=== PATIENT | female | born 1965 | race Caucasian/White ===

== ENCOUNTER 2017-10-22 17:09 | Emergency (ER) | payer MEDICARE, OTHER ==
[~2017-10-22] VITALS: Ht 172.7 cm; Wt 108.9 kg
[2017-10-22] MEDS ORDERED: DIPHTH,PERTUSS(ACELL),TET TOX 0.5 ML DISP.SYRIN. VAX IM ONE (17:45)
[2017-10-22] MEDS ORDERED: LIDOCAINE 1% Multi-Dose 20 ML VIAL. IJ ONE (17:45)
[2017-10-22] MEDS ORDERED: HYDR-971 PO (18:02)
[2017-10-22] MEDS ORDERED: CLIN300C8 PO (18:02)
--- NOTE | 2017-10-22 18:03 | PHYS DOC ---
Past History Past Medical History: Hypertension Past Surgical History: No Surgical History Alcohol Use: None Drug Use: None Adult General Chief Complaint Chief Complaint: SKIN RASH/ABSCESS HPI HPI Patient is a very pleasant 52-year-old female who presents for evaluation of an abscess to the right upper inner thigh. She states that she was working outside the other day and believes that an insect bit her. She is legally blind and did not see the insect and cannot describe it. She has no history of MRSA or abscesses in the past. She denies any other complaints and specifically denies fevers or chills. Review of Systems Review of Systems Constitutional: Denies fever or chills [] Eyes: Denies change in visual acuity, redness, or eye pain [] HENT: Denies nasal congestion or sore throat [] Respiratory: Denies cough or shortness of breath [] Cardiovascular: No additional information not addressed in HPI [] GI: Denies abdominal pain, nausea, vomiting, bloody stools or diarrhea [] : Denies dysuria or hematuria [] Musculoskeletal: Denies back pain or joint pain [] Integument: Denies rash or skin lesions [] right upper inner thigh abscess Neurologic: Denies headache, focal weakness or sensory changes [] Endocrine: Denies polyuria or polydipsia [] All other systems were reviewed and found to be within normal limits, except as documented in this note. Current Medications Current Medications Current Medications Medications (Trade) Dose Ordered Sig/Kalpesh Start Time Stop Time Status Last Admin Dose Admin Diphtheria/ Tetanus/Acell Pertussis (Boostrix) 0.5 ml ONCE ONCE 10/22/17 17:45 10/22/17 17:46 DC Lidocaine HCl 20 ml 1X ONCE 10/22/17 17:45 10/22/17 17:46 DC Allergies Allergies Allergies Coded Allergies Type Severity Reaction Last Updated Verified temazepam Allergy Severe tongue swelling 10/22/17 Yes Physical Exam Physical Exam Constitutional: Well developed, well nourished, no acute distress, non-toxic appearance. [] HENT: Normocephalic, atraumatic, bilateral external ears normal, oropharynx moist, no oral exudates, nose normal. [] Eyes: PERRLA, EOMI, conjunctiva normal, no discharge. [] Neck: Normal range of motion, no tenderness, supple, no stridor. [] Cardiovascular:Heart rate regular rhythm, no murmur [] Lungs & Thorax: Bilateral breath sounds clear to auscultation [] Abdomen: Bowel sounds normal, soft, no tenderness, no masses, no pulsatile masses. [] Skin: Warm, dry, no erythema, no rash. [] right upper inner thigh abscess with surrounding erythema Back: No tenderness, no CVA tenderness. [] Extremities: No tenderness, no cyanosis, no clubbing, ROM intact, no edema. [] Neurologic: Alert and oriented X 3, normal motor function, normal sensory function, no focal deficits noted. [] Psychologic: Affect normal, judgement normal, mood normal. [] Current Patient Data Vital Signs Vital Signs Date Time Temp Pulse Resp B/P (MAP) Pulse Ox O2 Delivery O2 Flow Rate FiO2 10/22/17 17:10 98.4 76 20 98 Room Air EKG EKG [] Radiology/Procedures Radiology/Procedures [] Course & Med Decision Making Course & Med Decision Making Pertinent Labs and Imaging studies reviewed. (See chart for details) [] Dragon Disclaimer Dragon Disclaimer This electronic medical record was generated, in whole or in part, using a voice recognition dictation system. Incision and Drainage Indication: Right upper inner thigh abscess Procedure: The patient was positioned appropriately and the skin over the incision site was prepped with iodine. Local anesthesia was given with 1% lido without epi. An incision was then made over the right thigh abscess and white/ yellow purulent material was expressed. Loculations were broken up. The drainage cavity was then irrigated with lidocaine and then iodoform gauze packing was placed. cultures obtained. The patients tetanus status updated today. The patient tolerated the procedure well. Complications: none Departure Departure: Impression: Primary Impression: Thigh abscess Disposition: 01 HOME, SELF-CARE Condition: STABLE Referrals: CRISTY JORGE (PCP) Patient Instructions: Abscess Additional Instructions: Follow-up with your doctor in the next 2-3 days and have the packing removed. Take the antibiotics and pain medicine as needed. Return to the ER for new or worsening symptoms. Scripts Hydrocodone Bit/Acetaminophen (NORCO 5-325 TABLET) 1 Each Tablet 1 TAB PO PRN Q6HRS PRN for PAIN, #15 TAB 0 Refills Prov: VASYL SOLIS DO 10/22/17 Clindamycin Hcl (CLINDAMYCIN HCL) 300 Mg Capsule 1 CAP PO TID, #30 CAP Prov: VASYL SOLIS DO 10/22/17 VASYL SOLIS DO Oct 22, 2017 18:03
[2017-10-22] MEDS ORDERED: HYDROcodone/APAP 5/325MG 1 TAB TABLET PO ONE (18:15)
[2017-10-22] MEDS ORDERED: CLINDAMYCIN HCL 150 MG CAPSULE PO ONE (18:15)
[2017-10-22 18:28] VITALS: BP 152/97
== END 2017-10-22 18:25 | disposition home or self-care (01) ==
LOC: ER 17:09
DX: L02.415 Cutaneous abscess of right lower limb (principal); I10 Essential (primary) hypertension; Z88.8 Allergy status to other drugs, medicaments and biological substances
CPT/HCPCS: 10060; 87070; 90471; 90715; 99283-25

== ENCOUNTER 2017-10-24 14:01 | Emergency (ER) | payer MEDICARE, OTHER ==
[~2017-10-24] VITALS: Ht 172.7 cm; Wt 108.9 kg
[~2017-10-24 14:01] MED LIST: CLIN300C8 PO; HYDR-971 PO
[2017-10-24 14:05] VITALS: BP 150/90
--- NOTE | 2017-10-24 14:29 | PHYS DOC ---
Past History Past Medical History: Hypertension, Other Past Surgical History: No Surgical History Alcohol Use: None Drug Use: None Adult General Chief Complaint Chief Complaint: WOUND CHECK HPI HPI 52-year-old female presenting the emergency department for reevaluation of her wound which was seen a few days ago. She had an abscess associated with cellulitis . She had her wound packed and initiated on oral clindamycin. She presents today for reevaluation and wound check.\ Review of systems is negative for fevers chills chest pain or shortness of breath. All other review of systems is negative unless otherwise noted in history of present illness. ED course: 52-year-old female presenting for wound reevaluation. The patient's cellulitis is faint and clearly improving from the previously demonstrated marker line. We removed the patient's packing. We recommend the patient continue taking her antibiotics. We natalio a With the date on the cellulitis for repeat wound examination in 2-3 days. The patient has been examined and was not found to have an emergency medical condition. The patient was then discharged home in stable condition to follow up with their primary care physician over the next 2-3 days. They were to return if their symptoms worsened or if they were concerned for any reason. Face -to-face discharge instructions and return precautions were given. Patient's questions were answered to their satisfaction. Patient is comfortable with plan. Review of Systems Review of Systems SEE ABOVE. Allergies Allergies Allergies Coded Allergies Type Severity Reaction Last Updated Verified temazepam Allergy Severe tongue swelling 10/22/17 Yes Physical Exam Physical Exam SEE ABOVE Constitutional: Well developed, well nourished, no acute distress, non-toxic appearance. [] HENT: Normocephalic, atraumatic, bilateral external ears normal, oropharynx moist, no oral exudates, nose normal. [] Eyes: PERRLA, EOMI, conjunctiva normal, no discharge. [] Neck: Normal range of motion, no tenderness, supple, no stridor. [] Cardiovascular:Heart rate regular rhythm, no murmur [] Lungs & Thorax: Bilateral breath sounds clear to auscultation [] Abdomen: Bowel sounds normal, soft, no tenderness, no masses, no pulsatile masses. [] Skin: cellulitis in right thigh as above. otherwise unremarkable Back: No tenderness, no CVA tenderness. [] Extremities: No tenderness, no cyanosis, no clubbing, ROM intact, no edema. [] Neurologic: Alert and oriented X 3, normal motor function, normal sensory function, no focal deficits noted. [] Psychologic: Affect normal, judgement normal, mood normal. [] Current Patient Data Vital Signs Vital Signs Date Time Temp Pulse Resp B/P (MAP) Pulse Ox O2 Delivery O2 Flow Rate FiO2 10/24/17 14:05 98.4 72 18 100 Room Air EKG EKG [] Radiology/Procedures Radiology/Procedures [] Course & Med Decision Making Course & Med Decision Making Pertinent Labs and Imaging studies reviewed. (See chart for details) [] Dragon Disclaimer Dragon Disclaimer This electronic medical record was generated, in whole or in part, using a voice recognition dictation system. Departure Departure: Impression: Primary Impression: Cellulitis Disposition: HOME, SELF-CARE Condition: STABLE Referrals: CRISTY JORGE (PCP) Patient Instructions: Abscess, Care After, Cellulitis Additional Instructions: Thank you for allowing us to participate in your care today. Followup with your primary care physician in 3 days for wound recheck. Call your Primary Doctor tomorrow and inform them of your visit today. If you do not have a primary care provider you can ask for a list of our primary care providers. Return to the emergency department you have any new or concerning findings. This should be evaluated by the primary care physician and any necessary consulting services for continued management within a few days after discharge. Return to emergency room if you have any new or concerning symptoms including but not limited to fever, chills, nausea, vomiting, intractable pain, any new rashes, chest pain, shortness of air, uncontrolled bleeding, difficulty breathing, and/or vision loss. If at any time, you are having difficulty getting into your primary care doctor or a specialist, return to the emergency department. RON [place]OR[place] MD Oct 24, 2017 14:29
== END 2017-10-24 14:50 | disposition home or self-care (01) ==
LOC: ER 14:01
DX: L03.115 Cellulitis of right lower limb (principal); I10 Essential (primary) hypertension; Z88.8 Allergy status to other drugs, medicaments and biological substances
CPT/HCPCS: 99281